=== PATIENT | female | born 1955 | race Two or more races ===

== ENCOUNTER 2021-08-06 18:02 | Emergency (ER) | payer BC ==
[2021-08-06] MEDS ORDERED: HYDROCODON-ACE1 EAC4 PO (20:40)
== END 2021-08-06 20:50 | disposition home or self-care (01) ==
LOC: ER1 18:02
DX: S82.52XA Displaced fracture of medial malleolus of left tibia, initial encounter for closed fracture (principal); S82.452A Displaced comminuted fracture of shaft of left fibula, initial encounter for closed fracture; I10 Essential (primary) hypertension; X50.1XXA Overexertion from prolonged static or awkward postures, initial encounter; Y92.009 Unspecified place in unspecified non-institutional (private) residence as the place of occurrence of the external cause
CPT/HCPCS: 29515; 73610; 99283